=== PATIENT | female | born 1965 | race Caucasian/White ===

== ENCOUNTER → 2016-11-04 | Outpatient (CLI) | payer BC | LOC: BRMIMAGING 07:51 | PROVIDERS: ATTEND Physician Assistant | DX: Z12.31 Encounter for screening mammogram for malignant neoplasm of breast (principal); Z85.3 Personal history of malignant neoplasm of breast; Z80.3 Family history of malignant neoplasm of breast | CPT/HCPCS: G0202 ==

== ENCOUNTER → 2018-10-26 | Outpatient (CLI) | payer BC, OTHER | LOC: FIMAGING 13:17 | PROVIDERS: ATTEND Physician Assistant | DX: Z12.31 Encounter for screening mammogram for malignant neoplasm of breast (principal); Z85.3 Personal history of malignant neoplasm of breast; Z80.3 Family history of malignant neoplasm of breast ==